=== PATIENT | female | born 2000 | race Caucasian/White ===

== ENCOUNTER 2022-04-14 03:44 | Outpatient (CLI) | payer BC, SELFPAY ==
[2022-04-14 11:06] LABS: Panorama Kit Sent via Fed Ex
[2022-04-14 11:22] LABS: Abs Immature Grans 0.03 10^3/uL (0.0-0.06); Absolute Basophil Count 0.03 10^3/uL (0.0-0.2); Absolute Eosinophil Count 0.09 10^3/uL (0.0-0.7); Absolute Monocyte Count 0.56 10^3/uL (0.1-0.8); Basophils % 0.3; HCT 37.2 % (36.0-46.0); HGB 12.8 g/dL (11.2-15.7); Immature Grans % 0.3; Lymphocytes % 14.9; MCH 31.4 pg (27.0-33.0); MCHC 34.4 % (32.0-36.0); MCV 91 fL (80-95); MPV 10.4 fL (8.0-11.0); Neutrophils % 77.5; Platelet Count 266 10^3/uL (130-400); RBC 4.08 10^6/uL (3.93-5.22); RDW 12.6 % (11.7-14.6); RDW-SD 41.4 fL; WBC 9.41 10^3/uL (4.4-10.8)
[2022-04-15 09:46] LABS: HIV-1/2 Ag & Ab Screen Negative (Negative)
[2022-04-15 09:58] LABS: Hepatitis B Surface Ag Negative (Negative)
[2022-04-15 10:29] LABS: Hepatitis C Ab w Rflx HCV PCR Negative (Negative)
[2022-04-15 11:32] LABS: Rubella IgG Ab (UVM) Positive (See Note); Varicella IgG Antibody Positive (See Note)
[2022-04-16 15:46] LABS: Syphilis IgG w/Reflex Nonreactive (Nonreactive)
[2022-04-19 01:09] LABS: Specimen WB Whole Blood
[2022-05-18 17:44] LABS: Result Summary NEGATIVE; Specimen WB Whole Blood
== END 2022-04-14 03:45 | disposition home or self-care (01) ==
LOC: LBO 03:44
PROVIDERS: Visit Provider Advanced Practice Midwife
DX: Z34.91 Encounter for supervision of normal pregnancy, unspecified, first trimester
CPT/HCPCS: 36415; 81220; 81222; 81329; 86787; 86803; 86850; 86900; 86901; 87340; 87389; 85025; 86762; 86780

== ENCOUNTER 2022-04-14 11:59 | Outpatient (REF) | payer BC, SELFPAY ==
--- NOTE | 2022-04-14 10:20 | PAPFT_PTH ---
PATIENT: Roshni Rose LOC: [facility] U#:[id number] AGE/SX: 21/F ROOM: RE04/14/[address]: Veronica Caceres : 2000 BED: DIS: 04/14/2022 SPEC #: [id number] RECD: 04/14/22 12:49 STATUS: APRIL RELeslie #: [id number] LEONORA: 04/14/22 10:[address]: Veronica Caceres DEPT: [facility] Cytology RECD BY: Niru Hale Tissues: 1 - CX/ENDOCX FOR PAP SMEARS Procedures: PAP THIN PREP/UVM Screening Comments: [id number]
[2022-04-14 13:29] LABS: *AMPHETAMINES SCREEN URINE Negative (Negative); *BARBITURATES SCREEN URINE Negative (Negative); *BENZODIAZEPINES SCREEN URINE Negative (Negative); Cannabinoids THC Negative (Negative); Cocaine Screen,Urine Negative (Negative); METHADONE URINE SCREEN Negative (Negative); OPIATES URINE SCREEN Negative (Negative)
[2022-04-14 13:46] LABS: Tricyclic Antidepressants Negative (Negative)
[2022-04-15 14:26] LABS: Chlamydia Result Negative (Negative); GC Result Negative (Negative)
[2022-04-20 12:28] LABS: Buprenorphine Negative ng/mL (Cutoff: 5.0); Norbuprenorphine Negative ng/mL (Cutoff: 2.5)
== END 2022-04-14 12:00 | disposition home or self-care (01) ==
LOC: LBN 11:59
PROVIDERS: Visit Provider Advanced Practice Midwife
DX: Z34.91 Encounter for supervision of normal pregnancy, unspecified, first trimester (principal); Z11.3 Encounter for screening for infections with a predominantly sexual mode of transmission; Z3A.11 11 weeks gestation of pregnancy; Z12.4 Encounter for screening for malignant neoplasm of cervix
CPT/HCPCS: 80307; 80348; 87491; 87591; 88142

== ENCOUNTER 2022-05-12 04:58 | Outpatient (CLI) | payer BC, SELFPAY ==
[2022-05-17 11:01] LABS: AFP 34.2 ng/mL; Cigarette smoking status non-Smoker; GA used in risk estimate Dates estimate; IVF Pregnancy No; Initial or repeat testing Initial testing; Insulin dependent diabetes No; Maternal Weight 139 lbs; Number of Fetuses 1; Prev Pregnancy w/NTD No; RECOMMENDED FOLLOW UP None.; Results Summary Normal risk
== END 2022-05-12 04:59 | disposition home or self-care (01) ==
LOC: LBO 04:58
PROVIDERS: Visit Provider Advanced Practice Midwife
DX: Z34.92 Encounter for supervision of normal pregnancy, unspecified, second trimester (principal); Z3A.15 15 weeks gestation of pregnancy; Z36.89 Encounter for other specified antenatal screening
CPT/HCPCS: 36415; 82105

== ENCOUNTER 2022-08-06 02:51 | Outpatient (CLI) | payer BC, SELFPAY ==
[2022-08-06 15:28] LABS: HCT 33.8 % (36.0-46.0); HGB 11.6 g/dL (11.2-15.7); MCH 31.5 pg (27.0-33.0); MCHC 34.3 % (32.0-36.0); MCV 92 fL (80-95); MPV 10.3 fL (8.0-11.0); Platelet Count 218 10^3/uL (130-400); RBC 3.68 10^6/uL (3.93-5.22); RDW 12.3 % (11.7-14.6)
[2022-08-06 15:41] LABS: Glucose,1 Hr (Glucola) 170 mg/dL (80-140)
== END 2022-08-06 02:52 | disposition home or self-care (01) ==
LOC: LBO 02:51
PROVIDERS: Visit Provider Advanced Practice Midwife
DX: Z34.92 Encounter for supervision of normal pregnancy, unspecified, second trimester (principal); Z3A.27 27 weeks gestation of pregnancy
CPT/HCPCS: 36415; 82950; 85027

== ENCOUNTER 2022-08-20 01:26 | Outpatient (CLI) | payer BC, SELFPAY ==
[2022-08-20 09:06] LABS: Glucose 1 Hour 200 mg/dL
[2022-08-20 10:59] LABS: Glucose 3 Hour 106 mg/dL
== END 2022-08-20 01:27 | disposition home or self-care (01) ==
LOC: LBO 01:26
PROVIDERS: Visit Provider Advanced Practice Midwife
DX: Z34.92 Encounter for supervision of normal pregnancy, unspecified, second trimester (principal); Z3A.29 29 weeks gestation of pregnancy
CPT/HCPCS: 82951

== ENCOUNTER 2022-10-08 12:55 | Outpatient (REF) | payer BC, SELFPAY ==
[2022-10-08 13:38] LABS: *AMPHETAMINES SCREEN URINE Negative (Negative); *BARBITURATES SCREEN URINE Negative (Negative); *BENZODIAZEPINES SCREEN URINE Negative (Negative); Cannabinoids THC Negative (Negative); Cocaine Screen,Urine Negative (Negative); METHADONE URINE SCREEN Negative (Negative); OPIATES URINE SCREEN Negative (Negative); Tricyclic Antidepressants Negative (Negative)
[2022-10-14 10:56] LABS: Buprenorphine Negative ng/mL (Cutoff: 5.0); Norbuprenorphine Negative ng/mL (Cutoff: 2.5)
== END 2022-10-08 12:56 | disposition home or self-care (01) ==
LOC: LBN 12:55
PROVIDERS: Visit Provider Advanced Practice Midwife
DX: Z34.93 Encounter for supervision of normal pregnancy, unspecified, third trimester (principal); Z36.85 Encounter for antenatal screening for Streptococcus B; Z3A.36 36 weeks gestation of pregnancy
CPT/HCPCS: 80307; 80348; 87081

== ENCOUNTER 2022-11-01 23:07 | Inpatient (IN) | payer BC, SELFPAY ==
[2022-11-01] VITALS (8 sets, daily range): BP systolic 146–162; BP diastolic 93–108; PULSE 63–69; RESP 16; TEMP 2.6–36.7; O2SAT 63
--- NOTE | 2022-11-01 23:13 | HPE_ITS ---
Date of service: 11/01/22 Time of Service: 23:14 Assessment and Plan Assessment and plan (1) PROM with onset of labor within 24 hours of rupture: Status: Acute (2) Hypertension affecting in third trimester: Status: Acute Assessment and plan: A: 22 yo G1 @ 40 wks, SROM & spontaneous onset early labor Severe range BP's on arrival GBS negative Category 1 tracing Increased risk for SD (primi & TWG >40 lb) Increased risk for PPH (HTN disorder of ) P: Admit to BC, T&S, CBC, CMP, LDH Straight cath for prot/creat ratio (urine) Initiate IV access and push Labetolol [address] Booker given pt status report and is en route Continuous EFM and anticipate (3) Uterine contractions: Status: Acute OB-HPI Labor/Delivery History of Present Illness Reason for Visit: term labor, hypertension Chief Complaint: Uterine Contractions; Suspected Rupture of Membranes (Reports SROM at home at 2130, contractions beginning shortly thereafter) , Associated Signs and Symptoms of Suspected ROM: Gross rupture, meconium staining noted on underpad. JUAN MANUEL Calculator Estimated Delivery Date Method Current WG Current Estimate 11/01/22 LMP (Certain) 40w 1d Other Estimates 11/02/22 Ultrasound #1 40w 0d History of Present Expected Delivery Route/Plan - CNM FOB/ - Kareem Veloz BG - Christina Hassan GBS negative Specific Issues/Plan 1. Genetic testing: Panorama WNL, CF/SMA negative, AFP=neg 2. Elevated 1-hr GTT at 28 wks - 170, 3-hr GTT F81/1hr 200/2h 147/3h106. Dietary counseling by CNM. 3. Tdap given 09/03/22 Assessment: History Reviewed & Current Review of Systems Narrative: ROS completed and noncontributory other than HPI Neurologic Comments: Pt denies headache or visual changes PFSH All Active Problems (Updated 11/01/22 @ 23:13 by Araceli Barron) PROM with onset of labor within 24 hours of rupture (Acute) Hypertension affecting in third trimester (Acute) Uterine contractions (Acute) (Acute) Family History (Updated 04/14/22 @ 10:01 by Veronica Caceres CNM) Maternal Grandmother Diabetes Social History (Updated 03/16/22 @ 12:59 by Sarah Taveras NP) Smoking/Tobacco Use Status: Never Smoking risk assessment performed?: Yes Alcohol Intake: never Drug use: Never Household members: spouse Sexually active: Yes Do you think of yourself as: straight/heterosexual Current gender identity: female History History 1 Para 0 Hx # Term Pregnancies 0 Multiple births 0 Hx # Pregnancies 0 Ectopic pregnancies 0 AB induced 0 Hx Number of Living Children 0 AB spontaneous 0 Meds Allergies and Home Medications Allergies Allergy/AdvReac Type Severity Reaction Status Date / Time No Known Drug Allergies Allergy Verified 10/29/22 13:53 Home Medications Medication Instructions Recorded Confirmed Type prenat.vits,heriberto,cae-tlcn-tbtah 1 tab PO DAILY 03/16/22 10/22/22 History Exam Physical Exam Vital signs: Temp Pulse BP 98.1 F 67 162/102 H 11/01/22 22:29 11/01/22 22:29 11/01/22 22:55 Vital Signs Reviewed: Yes Narrative: Severe range BP's noted x3, 15 minutes apart Pt denies FORD, abd pain or scotomata Constitutional Constitutional: mild distress, average body habitus and cooperative Detailed Labor and Delivery Exam Dilation: 4 Effacement (%): 100 station: 0 Cervix position: mid Consistency: soft ART Score(Cervical Ripeness Score): 9 Amniotic Membrane Status: Ruptured Rupture Method: Spontaneous Amniotic Fluid: Meconium Pooling: Positive ( hair and meconium seen on speculum exam) Contraction Frequency(min): q3 Contraction Duration(sec): 60 Contraction Intensity: Mild/Moderate Fetus A Heart Rate Baseline: 140 Monitor Accelerations: 15 X 15 Monitor Decelerations: None Variability: Moderate (6-25 BPM) Categories: Category I Est. Weight: 8 lb 2.514 oz Est. Weight: 3700 gms Date of Membrane Rupture: 11/01/22 Time of Membrane Rupture: 21:30 HEENT Exam HEENT Exam: Normal Neck Exam Neck Exam: Normal Chest/Brest/Axilla Exam Chest Exam: Normal Breast Exam Breast Exam: Not Done Respiratory Exam Respiratory Exam: Normal Cardiovascular Exam Cardiovascular Exam: Normal Abdominal Exam Abdominal Exam: Normal (Gravid, nontender) Rectal Exam Rectal Exam: Normal Exam Exam: Normal Extremities Exam Extremities Exam: Abnormal (+2 pedal edema) Back/Spine/Pelvis Exam Back Exam: Normal Pelvis Adequate: Yes Skin Exam Skin Exam: Normal Neurological Exam Neurological Exam: Normal (DTR negative/+1, no clonus) Psychiatric Exam Psychiatric Exam: Normal Results Results Group Beta Strep: Negative Blood Type: A+ Rubella Status: Immune Varicella Immunity: Immune Risk Assessment Risk for Shoulder Dystocia Historical/Initial OB: NEGATIVE FOR: Pelvic Abnormality, Pre- BMI>30, Previous Shoulder Dystocia or Previous Macrosomia 36 Weeks: NEGATIVE FOR: Current Gestational DM, EFW>4500gms or Maternal Weight Gain>40lbs 40 Weeks: POSTIVE FOR: Maternal Weight Gain >40lb; NEGATIVE FOR: EFW> 4500 gms or Post Dates Increased Risk?: Yes Delivery Plan @ 36wks: 10/08/22 Delivery Plan @ 40 wks: increased risk d/t >40 lb TWG and primiparity, plan spont labor and Risk for Pre-Eclampsia Daily Dose ASA Indicated: No Yes, if one or more: NEGATIVE FOR: Hx Pre-E/Gest HTN, Chronic HTN, Multiple Gestation, Pre-gestational DM, Renal Disease, Systemic Lupus or APA Syndrome Yes, if 2 or more: POSITIVE FOR: Nulliparity; NEGATIVE FOR: Age>= 35 yrs, >10yr btwn pregnancies, BMI>30, ethinicty, Mother/Sister w/ Pre-E or Previous IUGR Risk for Post- Hemorrhage Initial: NEGATIVE FOR: Multiple Gestation, Previous PPH, Known Clotting Deficie ncy, Grand Multiparity or Anticoagulation 36 Weeks: NEGATIVE FOR: Anemia, hgb<10, Low platelets(thrombocytopenia), Gestational HTN or Pre-E, Polyhydraminios or EFW>4500gms 40 Weeks: POSITIVE FOR: Gestation HTN or Pre-E; NEGATIVE FOR: Anemia, hgb<10, Low platelets (thrombocytopenia), Polyhydraminios or EFW>4500gms At Risk?: Yes (due to HTN) Counseled re: Active Management: Yes Risks Reviewed Risks Reviewed Upon Admission: Yes
[2022-11-01] MEDS: Labetalol 100 MG/20 ML VIAL 20 MG IVP (23:41)
[2022-11-01] MEDS: Normal Saline Flush 10 ML SYR IVP (23:43)
[2022-11-01 23:44] LABS: HGB 11.2 g/dL (11.2-15.7); MCH 31.5 pg (27.0-33.0); MCV 90 fL (80-95); MPV 11.3 fL (8.0-11.0); Platelet Count 224 10^3/uL (130-400); RBC 3.56 10^6/uL (3.93-5.22); RDW-SD 42.6 fL; WBC 12.73 10^3/uL (4.4-10.8)
[2022-11-01] MEDS: Lactated Ringers 1,000 ML 80 ML IV (23:49)
[2022-11-01 23:58] LABS: LDH 184 U/L (81-234)
[2022-11-01 23:59] LABS: ALT 23 U/L (14-59); AST 22 U/L (15-37); Albumin 2.5 g/dL (3.4-5.0); Alkaline Phosphatase 254 U/L (46-116); Anion Gap 10.6 mmol/L (3-11); BUN 12 mg/dL (7-18); Bilirubin, Total 0.2 mg/dL (0.2-1.0); CO2 24.4 mmol/L (21.0-32.0); CREATININE 0.7 mg/dL (0.55-1.02); Calcium 9.1 mg/dL (8.5-10.1); Chloride 102 mmol/L (98-107); Estimated GFR 125.33 (mL/min/1.73m2); Glucose 80 mg/dL (74-106); Potassium 3.2 mmol/L (3.5-5.1); Sodium 137 mmol/L (136-145); Total Protein 6.4 g/dL (6.4-8.2)
[2022-11-02] VITALS (37 sets, daily range): BP systolic 108–185; BP diastolic 46–105; PULSE 51–100; RESP 16–18; TEMP 36.5–37.2; O2SAT 96–100
[2022-11-02 00:04] LABS: COMMENT (LAB VIEW ONLY) 33.11 mg/dL; PROTEIN < 6.0 mg/dL
--- NOTE | 2022-11-02 00:18 | OBCE_ITS ---
Date of service: 11/02/22 Time of Service: 00:18 Assessment and Plan Assessment and plan (1) Hypertension affecting in third trimester: Status: Acute Assessment and plan: Patient responded to the initial dose of labetalol the plan is to begin magnesium sulfate 4 g loading dose 2 g an hour infusion. Normal electrolytes and CBC. No plan for magnesium levels at this time. (2) Uterine contractions: Status: Acute Assessment and plan: Patient tolerating uterine contractions. Anticipate vaginal delivery History of Present Illness History of Present Illness Chief Complaint: SROM, active labor, elevated BP Narrative: Pt is a 22yo female currently at 40W 1D EGA who has been followed by the [facility] service since first trimester. Patient reports spontaneous rupture of membranes with lightly meconium stained amniotic fluid noted at the time of admission. Initial blood pressure on arrival to the center 158/108. Repeat blood pressure 20 minutes later 159/103. She received a 5 mg dose of labetalol with her subsequent blood pressure 164/94. Plan is to admit the patient in active labor and begin magnesium sulfate infusion for severe range and term. care: For stress of blood pressure 112/62 third trimester blood pressure 128/76. Total weight gain: 42 pounds 14 visits. Patient had diet-controlled gestational diabetes Consults Consult date: 11/02/22 Requesting physician: Araceli Barron Review of Systems Constitutional Constitutional: Reports system reviewed and no additional complaints, except as documented and Denies headache(s) Comments: Increasingly painful contractions ENT Ears, Nose, Mouth, and Throat: Denies headache(s) Gastrointestinal Gastrointestinal: Reports system reviewed and no additional complaints, except as documented and Denies abdominal pain Genitourinary Genitourinary: Reports other (Uterine contractions) Neurologic Neurologic: Denies headache(s) Psychiatric Psychiatric: Reports system reviewed and no additional complaints, except as documented PFSH All Active Problems (Updated 11/01/22 @ 23:13 by Araceli Barron) PROM with onset of labor within 24 hours of rupture (Acute) Hypertension affecting in third trimester (Acute) Uterine contractions (Acute) (Acute) Family History (Updated 04/14/22 @ 10:01 by Veronica Caceres CNM) Maternal Grandmother Diabetes Social History (Updated 03/16/22 @ 12:59 by Sarah Taveras NP) Smoking/Tobacco Use Status: Never Smoking risk assessment performed?: Yes Alcohol Intake: never Drug use: Never Household members: spouse Sexually active: Yes Do you think of yourself as: straight/heterosexual Current gender identity: female History History 1 Para 0 Hx # Term Pregnancies 0 Multiple births 0 Hx # Pregnancies 0 Ectopic pregnancies 0 AB induced 0 Hx Number of Living Children 0 AB spontaneous 0 Exam Const General: no acute distress (Tolerating contractions well) Resp Effort & Inspection: normal respiratory effort GI Palpation: soft, no hepatosplenomegaly and nontender (No right upper quadrant tenderness.) General: other (CUSTOMER FIELD REPRESENTATIVE exam deferred) Skin General skin exam: no rashes or lesions noted Neuro Cognition: normal cognition Speech: speech normal DTR's: Rt Patellar: 1+ (No right or left clonus) and Lt Patellar: 1+ Extrem General: normal to inspection, full ROM and edema (1+ pretibial) Laterality: bilateral Psych Appearance: grossly normal Mental Status: mental status grossly normal Speech and Movement: speech and movement normal Mood: congruent mood Affect: normal affect Attitude: cooperative Results Last Vital Signs Temp 98.1 F 11/01/22 23:55 Pulse 63 11/01/22 23:55 Resp 16 11/01/22 23:55 BP 148/94 H 11/02/22 00:12 Pulse Ox 63 L 11/01/22 23:55 Labs 11/01/22 23:33 11/01/22 23:33 Labs: Laboratory Results - last 24 hr 11/01/22 11/01/22 11/01/22 23:24 23:33 23:33 WBC 12.73 H RBC 3.56 L Hgb 11.2 Hct 32.0 L MCV 90 MCH 31.5 MCHC 35.0 RDW 13.0 Plt Count 224 MPV 11.3 H Sodium 137 Potassium 3.2 L Chloride 102 Carbon Dioxide 24.4 Anion Gap 10.6 BUN 12 Creatinine 0.7 Est GFR (CKD-EPI 2020) 125.33 Glucose 80 Calcium 9.1 Total Bilirubin 0.2 AST 22 ALT 23 Alkaline Phosphatase 254 H Lactate Dehydrogenase Total Protein 6.4 Albumin 2.5 L Ur Random Creatinine 33.11 U Random Total Protein < 6.0 U [place] Prot/Creat Ratio 11/01/22 23:33 WBC RBC Hgb Hct MCV MCH MCHC RDW Plt Count MPV Sodium Potassium Chloride Carbon Dioxide Anion Gap BUN Creatinine Est GFR (CKD-EPI 2020) Glucose Calcium Total Bilirubin AST ALT Alkaline Phosphatase Lactate Dehydrogenase 184 Total Protein Albumin Ur Random Creatinine U Random Total Protein U [place] Prot/Creat Ratio
[2022-11-02] MEDS: MAGNESIUM SULFATE 20 GM/500 ML BAG IV ×2 (00:25→10:21)
[2022-11-02] MEDS: Oxytocin/Normal Saline 30 UNIT/500 ML BAG 95 UNITS IV (03:50)
[2022-11-02] MEDS: miSOPROStol 200 MCG TAB 600 MCG SL (04:00)
--- NOTE | 2022-11-02 04:37 | OBVDS_ITS ---
Date of service: 11/02/22 Time of Service: 04:37 OB Labor/ Delivery Information Baby A Delivery Delivery Method: Spontaneaous Presentation: Cephalic Cephalic Position: Vertex Vertex Position: Right Occipital Anterior Breech Position: N/A Cord Description-Baby A: 3 Vessels Amniotic Fluid: Meconium Estimated Blood Loss: 450 Delivery Outcome: Liveborn Infant Transferred: [place] Nursery Note: Severe range BP responded to first IV dose of labetalol 20 mg and stabilized, Dr. Booker inhouse and ordered Magnesium Sulfate 4 gm loading and 2 gm maintenance for seizure prophylaxis, pt moved through labor steadily with category 1 tracing in first stage labor using H&K position and nitrous inhalant. Urges to bear down strengthened, pt repositioned to semifowlers, anterior lip manually reduced and head descended to +3 station, 2nd stage huddle was completed and excellent maternal efforts brought head to . FHT's at baseline with moderate variability and early decels as head descended. Increased risk for SD and PPH were identified in huddle review and preparations were put in place. FHT's by EFM showed early decels continuing, increasingly slow return to baseline was noted, Dr. James summoned to room for delivery. At full FHT's at 68-75 bpm, local perineal lidocaine injection completed in preparation for MLE to speed delivery but pt was able to deliver head prior to procedure, shoulders came easily and nonvigorous female infant delivered onto maternal abdomen. A moderate amount of dark meconium fluid followed delivery of the body. After 1 minute of drying, suction, positioning and stimulation, cord was clamped and cut by FOB, handed to RN and taken to warmer attended by Dr. Booker. Cord segment clamped and set aside for cord gas sampling, Pitocin IV bolus was started, maternal BP at 130's over 80's immediately , fundus firm below umbilicus, [place] placenta delivered intact with trailing membranes and 3VC, vaginal introital laceration repaired with 3 stitches of 3.0 Vicryl while pt used nitrous, slow but steady lochia trickle noted despite near continuous fundal massage, misoprostel 600 mcg given PO, small amt of clots evacuated from cervix on vaginal sweep. Right side periclitoral repair done with 4.0 Vicryl, straight cath of 200 ml clear yellow urine done. At 40 minutes , lochia was quite minimal, CNM then kannan a venous cord gas from the cord segment which was transported directly to the lab. Dr. Encarnacion arrived to further assist with care during perineal repair, apgars 4/7/7 on CPAP, weight 3415 gms, infant transported to nursery for further treatment. Pt and FOB were kept informed throughout events of labor and delivery, FOB accompanied to nursery, pt stable and resting. Providers Doctor: April Booker Nurse Bank Vault Custodian: Araceli Barron Meat Boner And Slicer: Ewelina Encarnacion Nurse: Trinity Barron Nurse: Shakira Lorenzo Labor/Delivery Information Number of Babies in Womb: 1 Steroids Given: None Reason Steroids Not Administered: N/A Group Beta Strep: Negative Antibiotics Administered: No Rubella Status: Immune Blood Type: A+ Varicella Immunity: Immune Medication in Delivery: pitocin IV bolus, misoprostol 600 mcg PO Stages of Labor Onset of Labor Date: 11/01/22 Onset of Labor Time: 21:30 Complete Dilatation Date: 11/02/22 Complete Dilatation Time: 02:57 Labor - Stage 1 Duration: 5 hours and 27 minutes ROM Baby A: 11/01/22 ROM Baby A: 21:30 ROM Total Time- Baby A: [id number] Infant Delivery Date-Baby A: 11/02/22 Delivery Time-Baby A: 03:38 Labor Stage 2 Duration: 41 minutes Placenta Delivery Date-Baby A: 11/02/22 Placenta Delivery Time-Baby A: 03:46 Labor-Stage 3 Duration: 8 minutes Total Length of Labor-Baby A: 6 hours and 8 minutes Placenta Cultured: No Placenta Status: Delivered Baby A Gender: Female Gestational Status: Term (39-41.6 wks) Gestational Age in Weeks/Days: 40 Weeks and 1 Days weight: 7 lb 8.461 oz Weight Comment: 3415 gms Procedure Procedures: Cord Blood Collection and Other (venous cord gas) Interventions Repair of Laceration Type: Other (vaginal and periclitoral), Laceration Extension: N/A. Sponge Count Correct: Vaginal Sweep Peformed, Sharp Count Correct: Yes.
--- NOTE | 2022-11-02 07:06 | NUR.NOTE ---
UPon entering room, Pt stated she flet nauseaus. Decreased BP noted to 97/48, much lower then previous. Dr. Sharma called to room and echevarria cathather placed. Mag stopped per Dr. Meredith. Nursing Note:
--- NOTE | 2022-11-02 07:11 | NUR.NOTE ---
Vargas catheter placed for 800 Nursing Note:
[2022-11-02 08:25] LABS: HCT 27.6 % (36.0-46.0); HGB 9.7 g/dL (11.2-15.7); MCH 31.7 pg (27.0-33.0); MCHC 35.1 % (32.0-36.0); MCV 90 fL (80-95); MPV 11.5 fL (8.0-11.0); Platelet Count 218 10^3/uL (130-400); RBC 3.06 10^6/uL (3.93-5.22); RDW 13.2 % (11.7-14.6); RDW-SD 42.8 fL
--- NOTE | 2022-11-02 08:39 | DSE_ITS ---
Date of service: 11/02/22 Time of Service: 08:39 DS: Diagnosis Discharge Diagnosis (1) Hypertension affecting in third trimester: Status: Acute (2) Vaginal delivery: Status: Acute (3) Preeclampsia: Status: Acute Discharge Plan Disposition Patient Disposition: Transfer-Acute Inpatient Care Specific Acute Inpt Facility: [facility] Condition: Fair Discharge Details Reason For Visit: term labor, hypertension Admit Date/Time: 11/01/22 23:07 Admit Provider: Araceli Barron Attending Provider: Araceli Barron Hospital Course Hospital Course: Patient is a 22-year-old G1 now P1 female who had spontaneous rupture membranes on the evening of 11/01/2022 at 40 W1D EGA. Patient has been followed by the CNM service at [facility] and had a complicated only by diet-controlled gestational diabetes. Upon admission to the center her initial blood pressure was 158/108 for which she received an oral dose of 5 mg labetalol and a magnesium sulfate infusion was initiated with a 4 g loading dose and a 2 g/h maintenance dose. She was noted to have meconium staining of the amniotic fluid. She went on to deliver spontaneously a viable female infant at 03:38 over first-degree perineal laceration. Infant's Apgars 4@1min, 4@4 min, 7@10min. Infant had oxygen requirement and [place] [facility] [place] Pt's Magnesium Sulfate infusion was temporarily halted after pt had a hypotensive episode. A echevarria catheter was placed to gravity drainage and 800cc was measured. NS bolus administered, Echevarria remained in place and Magnesium Sulfate infusion resumed at 2gm/hr. [facility] accepted pt in transfer. She will be transfered with Magnesium Sulfate infusion in place. Home Meds and New Rx's Prescriptions: No Action prenat.vits,heriberto,[id number] Tablet 1 tab PO DAILY Discharge Instructions Stand Alone Forms: BC Post Vaginal Deliver Activity:: Activity as Tolerated Equipment/Supplies:: IV infusion Diet:: As Tolerated Discharge Orders Discharge Orders: Discharge Order (Routine); Ordered 11/02/22 Ordered By: April Booker DS: Summary Time Spent with Patient providing and/or coordinating discharge services: Greater than 30 minutes Status at Discharge Functional status at discharge: wheelchair bound Overall status at discharge: patient is not back to baseline Mental Status: mental status grossly normal Speech and Movement: speech and movement normal Mood: congruent mood Affect: normal affect Exam Psych Mental Status: mental status grossly normal Speech and Movement: speech and movement normal Mood: congruent mood Affect: normal affect DS: Data Vitals/I&O Vitals and I&O: Vital Signs Temperature 98.5 F 11/02/22 05:58 Temperature 36.7 F 11/01/22 22:56 Temperature Source Oral 11/02/22 05:58 Pulse 51 L 11/02/22 08:34 Pulse 69 11/01/22 22:56 Respiratory Rate 16 11/01/22 23:55 Respiratory Depth Normal 11/01/22 23:00 Blood Pressure 108/46 L 11/02/22 07:12 Blood Pressure 162/102 11/01/22 22:56 Blood Pressure Mean 66 11/02/22 07:12 Pulse Oximetry 100 11/02/22 08:34 Oxygen Delivery Method Room Air 11/01/22 23:55 Oxygen Flow Rate 0 11/01/22 23:55 Pain Level 5 11/01/22 22:29 Comment Regine Barron CNM made aware of increased BP 11/01/22 22:55 Intake & Output 11/01/22 11/01/22 11/02/22 11:59 23:59 11:59 Intake Total 102.667 / 102.667 Output Total 600 / 600 1700 / 1700 Balance -600 / -600 -1597.333 / -1597.333 Weight 7 lb Intake: IV 102.667 / 102.667 Output: Urine 600 / 600 1300 / 1300 Blood 400 / 400 Other: Urine Color Yellow Indigo Comment Straight cath after delivery Data Completed and Pending Labs on day of discharge: Labs from last 24 hours 11/02/22 11/01/22 11/01/22 08:15 23:33 23:33 WBC 23.00 H RBC 3.06 L Hgb 9.7 L Hct 27.6 L MCV 90 MCH 31.7 MCHC 35.1 RDW 13.2 Plt Count 218 MPV 11.5 H Sodium 137 Potassium 3.2 L Chloride 102 Carbon Dioxide 24.4 Anion Gap 10.6 BUN 12 Creatinine 0.7 Est GFR (CKD-EPI 2020) 125.33 Glucose 80 Calcium 9.1 Total Bilirubin 0.2 AST 22 ALT 23 Alkaline Phosphatase 254 H Lactate Dehydrogenase 184 Total Protein 6.4 Albumin 2.5 L Ur Random Creatinine U Random Total Protein U [place] Prot/Creat Ratio Patient ABO/Rh Antibody Screen 11/01/22 11/01/22 11/01/22 23:33 23:33 23:24 WBC 12.73 H RBC 3.56 L Hgb 11.2 Hct 32.0 L MCV 90 MCH 31.5 MCHC 35.0 RDW 13.0 Plt Count 224 MPV 11.3 H Sodium Potassium Chloride Carbon Dioxide Anion Gap BUN Creatinine Est GFR (CKD-EPI 2020) Glucose Calcium Total Bilirubin AST ALT Alkaline Phosphatase Lactate Dehydrogenase Total Protein Albumin Ur Random Creatinine 33.11 U Random Total Protein < 6.0 U [place] Prot/Creat Ratio Patient ABO/Rh A Positive Antibody Screen NEGATIVE PFSH All Active Problems (Updated 11/02/22 @ 08:41 by April Booker MD) Preeclampsia (Acute) Vaginal delivery (Acute) PROM with onset of labor within 24 hours of rupture (Acute) Hypertension affecting in third trimester (Acute) Uterine contractions (Acute) (Acute) Family History (Updated 04/14/22 @ 10:01 by Veronica Caceres CNM) Maternal Grandmother Diabetes Social History (Updated 03/16/22 @ 12:59 by Sarah Taveras NP) Smoking/Tobacco Use Status: Never Smoking risk assessment performed?: Yes Alcohol Intake: never Drug use: Never Household members: spouse Sexually active: Yes Do you think of yourself as: straight/heterosexual Current gender identity: female History History 1 Para 1 Hx # Term Pregnancies 1 Multiple births 0 Hx # Pregnancies 0 Ectopic pregnancies 0 AB induced 0 Hx Number of Living Children 1 AB spontaneous 0 Past Pregnancies Del. Date GA/Weeks # Preg Succ Route Wgt Sex Labor Lgth Anesth esia Location Prov Complic 11/02/22 40 No Yes vaginal Female james/danielle verma low apgars Delivery Date: 11/02/22 Last Updated by: April Booker MD SROM, onset preeclampsia in labor. Meconium. Saad Vasquez [place] [facility] [place] Mom transferred with . Time Spent with Patient Time Spent with Patient: 45-69 minutes Time was spent: preparing to see the patient(eg.review tests), obtaining and/or reviewing separately otained hiistory and ordering medications,tests, procedures
== END 2022-11-02 12:55 | disposition short-term general hospital (02) | DRG 807 ==
LOC: BCD 23:13 → OBS 23:13
PROVIDERS: Obstetrics & Gynecology Gynecology; Admitting Provider Advanced Practice Midwife; Visit Provider Advanced Practice Midwife
DX: O42.02 Full-term premature rupture of membranes, onset of labor within 24 hours of rupture (principal); Z37.0 Single live birth; Z3A.40 40 weeks gestation of pregnancy; O77.0 Labor and delivery complicated by meconium in amniotic fluid; O70.0 First degree perineal laceration during delivery; O14.14 Severe pre-eclampsia complicating childbirth; O24.420 Gestational diabetes mellitus in childbirth, diet controlled
CPT/HCPCS: 36415; 80053; 85027; 86850; 86900; 86901; 82565; 83615; 84156; J3475